=== PATIENT | female | born 2000 | race Caucasian/White ===

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

== ENCOUNTER → 2021-01-21 | Outpatient (CLI) | payer OTHER ==
[~2021-01-21] MED LIST changes: -E-Z-GAS II EFFERVESCENT PACKET (SODIUM BICARB./CITRIC ACID/SIMETHICONE) As Ordered ONE; -E-Z-HD 98% w/w 340GM SUSP BTL As Ordered ONE; -E-Z-PAQUE 96% w/w SUSP 176GM BTL As Ordered ONE
== END ==
LOC: M LABSMTC 10:07
PROVIDERS: ATTEND Pediatrics
DX: Z20.828 Contact with and (suspected) exposure to other viral communicable diseases (principal); Z11.59 Encounter for screening for other viral diseases

== ENCOUNTER 2022-01-31 13:22 | Emergency (ER) | payer OTHER ==
[~2022-01-31] VITALS: Ht 160 cm; Wt 50.9 kg
[2022-01-31 14:20] LABS: BASO % 0.2 % (0.0-1.0); EOS # 0.1 10^3/uL (0.0-0.5); EOS % 0.7 % (0.0-3.0); HEMATOCRIT 41.7 % (36.0-47.0); HEMOGLOBIN 13.8 g/dl (12.0-15.5); LYMPH # 2.1 10^3/uL (1.5-5.0); LYMPH % 21.3 % (24.0-44.0); MEAN CORPUSCULAR HEMOGLOBIN 30.3 pg (27.0-33.0); MEAN CORPUSCULAR HGB CONC 33.1 g/dl (32.0-36.5); MEAN CORPUSCULAR VOLUME 91.6 fl (80.0-96.0); MONO # 0.6 10^3/uL (0.0-0.8); MONO % 5.8 % (2.0-8.0); NEUTROPHILS % 71.6 % (36.0-66.0); PLATELET COUNT, AUTOMATED 262 10^3/uL (150-450); RED BLOOD COUNT 4.55 10^6/uL (4.00-5.40); WHITE BLOOD COUNT 9.8 10^3/uL (4.0-10.0)
[2022-01-31 14:54] LABS: BLOOD UREA NITROGEN 13 MG/DL (7-18); CALCIUM LEVEL 9.8 MG/DL (8.5-10.1); CARBON DIOXIDE LEVEL 26 MEQ/L (21-32); CHLORIDE LEVEL 110 MEQ/L (98-107); CREATININE FOR GFR 0.84 MG/DL (0.55-1.30); GLUCOSE, FASTING 85 MG/DL (70-100); HCG, SERUM QUANTITATIVE < 1.0 MIU/ML; POTASSIUM SERUM 4.7 MEQ/L (3.5-5.1); SODIUM LEVEL 138 MEQ/L (136-145)
[2022-01-31 18:55] LABS: GC DNA AMPLIFICATION NEGATIVE (NEGATIVE)
[2022-01-31] MEDS ORDERED: DOXY-443 PO (19:05)
[2022-01-31] MEDS ORDERED: DOXYCYCLINE HYCLATE 100MG TABLET PO ONE (19:05)
[2022-01-31 19:15] VITALS: BP 108/60
== END 2022-01-31 19:32 | disposition home or self-care (01) ==
LOC: M ED 13:22
DX: R10.2 Pelvic and perineal pain (principal); A74.9 Chlamydial infection, unspecified; R19.09 Other intra-abdominal and pelvic swelling, mass and lump; Z88.0 Allergy status to penicillin

== ENCOUNTER → 2022-05-09 | Outpatient (REF) | payer OTHER ==
[~2022-05-09] MED LIST changes: +DOXY-443 PO; +ETON68IM SC; +MACR100C43 PO; +NAPR-837 PO; +PYRI1TAB5 PO
[2022-05-10 09:43] LABS: APPEARANCE, URINE MANUAL HAZY (CLEAR); COLOR, URINE MANUAL LT YELLOW (YELLOW)
[2022-05-10 09:44] LABS: SPECIFIC GRAVITY,URINE MANUAL 1.005 (1.002-1.035)
[2022-05-10 09:45] LABS: BILIRUBIN, URINE MANUAL NEGATIVE (NEGATIVE); BLOOD URINE MANUAL POSITIVE (NEGATIVE); GLUCOSE, URINE (UA) MANUAL NEGATIVE (NEGATIVE); KETONE, URINE MANUAL NEGATIVE (NEGATIVE); LEUKOCYTE ESTERASE, URINE MAN POSITIVE (NEGATIVE); NITRITE, URINE MANUAL NEGATIVE (NEGATIVE); PROTEIN, URINE MANUAL 1+ mg/dL (NEGATIVE); UROBILINOGEN, URINE MANUAL NORMAL (NORMAL)
[2022-05-10 10:14] LABS: WBC, URINE TNTC /hpf (0-3)
[2022-05-10 10:15] LABS: BACTERIA, URINE LARGE AMOUNT; HYALINE CAST, URINE NONE SEEN /lpf (0-1); SQUAMOUS EPITHELIAL CELL URINE SMALL AMOUNT /hpf (SMALL AMT)
== END ==
LOC: M LAB REF 08:32
PROVIDERS: ATTEND Physician Assistant
DX: N39.0 Urinary tract infection, site not specified (principal)

== ENCOUNTER 2022-05-10 07:28 | Emergency (ER) | payer OTHER ==
[~2022-05-10] VITALS: Ht 160 cm; Wt 62.4 kg
[~2022-05-10 07:28] MED LIST changes: -ETON68IM SC; -MACR100C43 PO; -NAPR-837 PO; -PYRI1TAB5 PO
[2022-05-10 07:29] VITALS: BP 111/66
[2022-05-10] MEDS ORDERED: ETON68IM SC (07:35)
[2022-05-10] MEDS ORDERED: PHENAZOPYRIDINE 100 MG TAB PO ONE (09:40)
[2022-05-10] MEDS ORDERED: NITROFURANTOIN (MACROBID) 100 MG CAP PO ONE (09:40)
[2022-05-10] MEDS ORDERED: KETOROLAC 30 MG/ML 1ML VIAL IM ONE (09:40)
[2022-05-10] MEDS ORDERED: PYRI1TAB5 PO (09:44)
[2022-05-10] MEDS ORDERED: NAPR-837 PO (09:44)
[2022-05-10] MEDS ORDERED: MACR100C43 PO (09:44)
== END 2022-05-10 10:09 | disposition home or self-care (01) ==
LOC: M ED 07:28
DX: N30.01 Acute cystitis with hematuria (principal); R51.9 Headache, unspecified; Z88.0 Allergy status to penicillin; Z79.899 Other long term (current) drug therapy
CPT/HCPCS: 81000; 81015; 87088; 96372; 99282; J1885

== ENCOUNTER 2023-03-26 11:42 | Emergency (ER) | payer OTHER ==
[~2023-03-26] VITALS: Ht 160 cm; Wt 67.5 kg
[~2023-03-26 11:42] MED LIST changes: +ETON68IM SC; +MACR100C43 PO; +NAPR-837 PO; +PYRI1TAB5 PO
[2023-03-26] MEDS ORDERED: FLUC150T9 (11:51)
[2023-03-26] MEDS ORDERED: IBUP200C25 PO (11:51)
[2023-03-26 13:29] LABS: HEMATOCRIT 38.8 % (36.0-47.0); HEMOGLOBIN 12.7 g/dl (12.0-15.5); MEAN CORPUSCULAR HEMOGLOBIN 28.9 pg (27.0-33.0); MEAN CORPUSCULAR HGB CONC 32.7 g/dl (32.0-36.5); MEAN CORPUSCULAR VOLUME 88.2 fl (80.0-96.0); PLATELET COUNT, AUTOMATED 246 10^3/uL (150-450); WHITE BLOOD COUNT 13.2 10^3/uL (4.0-10.0)
[2023-03-26] MEDS ORDERED: KETOROLAC 30 MG/ML 1ML VIAL IV ONE (13:40)
[2023-03-26] MEDS ORDERED: NS 1,000 ML IV ONE (13:40)
[2023-03-26] MEDS ORDERED: ISOVUE-370 76% 100ML VIAL As Ordered ONE (14:03)
[2023-03-26] MEDS ORDERED: cefTRIAXone SOD 1 GM in D5W MINI-BAG PLUS 50 ML IV ONE (14:55)
[2023-03-26] MEDS ORDERED: SULF1TAB23 PO (15:53)
[2023-03-26 16:01] VITALS: BP 110/62; TEMP 98.6; O2SAT 99
== END 2023-03-26 16:06 | disposition home or self-care (01) ==
LOC: M ED 11:42
DX: N10 Acute pyelonephritis (principal); F41.9 Anxiety disorder, unspecified; F17.200 Nicotine dependence, unspecified, uncomplicated; F12.10 Cannabis abuse, uncomplicated; F10.10 Alcohol abuse, uncomplicated; Z88.0 Allergy status to penicillin; Z79.2 Long term (current) use of antibiotics; Z79.899 Other long term (current) drug therapy
CPT/HCPCS: 74177; 80047; 81001; 84702; 85027; 87088; 87186; 96365; 96375; 99283; J0696; J1885; Q9967

== ENCOUNTER → 2024-03-16 | Outpatient (REF) | payer OTHER ==
[~2024-03-16] MED LIST changes: +DOXY-323 PO; -DOXY-443 PO; +FLUC150T9; +IBUP200C25 PO; +SULF1TAB23 PO
== END ==
LOC: M LAB REF 19:00
PROVIDERS: ATTEND Physician Assistant Medical
DX: J06.9 Acute upper respiratory infection, unspecified (principal)

== ENCOUNTER 2024-04-18 10:03 | Emergency (ER) | payer OTHER ==
[~2024-04-18] VITALS: Ht 160 cm; Wt 74.6 kg
[2024-04-18 11:11] LABS: HCG, SERUM QUALITATIVE NEGATIVE (NEGATIVE)
[2024-04-18 13:41] VITALS: BP 114/72; TEMP 98.6; O2SAT 100
== END 2024-04-18 13:54 | disposition home or self-care (01) ==
LOC: M ED 10:03
DX: S40.021A Contusion of right upper arm, initial encounter (principal); W22.8XXA Striking against or struck by other objects, initial encounter; R51.9 Headache, unspecified; Y92.9 Unspecified place or not applicable; Y93.89 Activity, other specified; Y99.0 Civilian activity done for income or pay; Z79.899 Other long term (current) drug therapy

== ENCOUNTER 2024-05-27 17:26 | Emergency (ER) | payer OTHER ==
[~2024-05-27] VITALS: Ht 160 cm; Wt 65.9 kg
[~2024-05-27 17:26] MED LIST changes: -DOXY-323 PO; +DOXY-441 PO
[2024-05-27 18:43] LABS: BASO # 0.1 10^3/uL (0.0-0.2); BASO % 0.4 % (0.0-1.0); EOS # 0.2 10^3/uL (0.0-0.5); EOS % 1.5 % (0.0-3.0); HEMATOCRIT 38.9 % (36.0-47.0); HEMOGLOBIN 13.2 g/dl (12.0-15.5); LYMPH # 2.2 10^3/uL (1.5-5.0); LYMPH % 16.6 % (24.0-44.0); MEAN CORPUSCULAR HEMOGLOBIN 29.3 pg (27.0-33.0); MEAN CORPUSCULAR HGB CONC 33.9 g/dl (32.0-36.5); MEAN CORPUSCULAR VOLUME 86.4 fl (80.0-96.0); MONO # 0.8 10^3/uL (0.0-0.8); MONO % 5.9 % (2.0-8.0); NEUTROPHILS # 10.1 10^3/uL (1.5-8.5); NEUTROPHILS % 75.2 % (36.0-66.0); PLATELET COUNT, AUTOMATED 343 10^3/uL (150-450); WHITE BLOOD COUNT 13.5 10^3/uL (4.0-10.0)
[2024-05-27] MEDS ORDERED: ISOVUE-370 76% 100ML VIAL As Ordered ONE (18:59)
[2024-05-27 19:05] LABS: ETHYL ALCOHOL (ETHANOL) 0.005 % (0.000-0.010); HCG, SERUM QUALITATIVE NEGATIVE (NEGATIVE)
[2024-05-27 19:07] LABS: BLOOD UREA NITROGEN 12 MG/DL (9-23); CALCIUM LEVEL 9.6 MG/DL (8.5-10.1); CARBON DIOXIDE LEVEL 24 MMOL/L (20-31); CHLORIDE LEVEL 109 MMOL/L (98-107); CREATININE FOR GFR 0.69 MG/DL (0.55-1.30); GLOMERULAR FILTRATION RATE > 60.0 (>60); GLUCOSE, FASTING 95 MG/DL (60-100); POTASSIUM SERUM 4.1 MMOL/L (3.5-5.1); SODIUM LEVEL 139 MMOL/L (136-145)
[2024-05-27] MEDS: MORPHINE 2 MG/ML 1ML VIAL IV ONE (19:29)
[2024-05-27 21:22] VITALS: BP 116/69; TEMP 98.6; O2SAT 97
== END 2024-05-27 21:24 | disposition home or self-care (01) ==
LOC: M ED 17:26
DX: S00.33XA Contusion of nose, initial encounter (principal); S60.222A Contusion of left hand, initial encounter; V49.40XA Driver injured in collision with unspecified motor vehicles in traffic accident, initial encounter; F17.200 Nicotine dependence, unspecified, uncomplicated; F12.10 Cannabis abuse, uncomplicated; Z88.0 Allergy status to penicillin; Z79.899 Other long term (current) drug therapy; Y92.410 Unspecified street and highway as the place of occurrence of the external cause; Y93.89 Activity, other specified; Y99.9 Unspecified external cause status
CPT/HCPCS: 70450; 70486; 71260; 72125; 73000; 73030; 73130; 73564; 74177; 80047; 80048; 82077; 84703; 85025; 93041; 94760; 96374; 99284; Q9967